=== PATIENT | female | born 1980 | race African-American/Black ===

== ENCOUNTER 2021-03-02 22:56 | Emergency (ER) | payer SELFPAY ==
[~2021-03-02 22:56] MED LIST: BACLOFEN 10MG T10 MG PO; MOBIC7.5 MG PO; NORCO 5-325 TA1 EACH PO; ONDANSETRON ODT4 MG SL
[2021-03-03 00:20] LABS: BILIRUBIN NEGATIVE (NEGATIVE); BLOOD 2+ Ery/uL (NEGATIVE); CLARITY CLEAR (CLEAR); COLOR YELLOW (YELLOW); GLUCOSE (U) NORMAL (NORMAL); LEUKOCYTES 2+ Leu/uL (NEGATIVE); NITRITE NEGATIVE (NEGATIVE); PROTEIN TRACE (LOW) mg/dL (NEGATIVE); SPECIFIC GRAVITY 1.025 (1.001-1.030); UROBILINOGEN 0.2 mg/dL (0.2-1.0)
[2021-03-03 00:34] LABS: URINARY WBC TNTC
[2021-03-03 00:35] LABS: BACTERIA 4+
[2021-03-03 02:02] LABS: BASOPHIL 0.6 % (0-2); EOSINOPHIL 1.4 % (0-5); HCT 37.6 % (37.0-47.0); HGB 12.5 g/dl (12.5-16.0); LYMPHOCYTE 52.1 % (15-48); MCH 30.3 pg (25.0-31.0); MCHC 33.2 g/dL (32.0-36.0); MONOCYTE 7.4 % (0-12); MPV 10.2 fL (6.0-9.5); NEUTROPHIL 38.3 % (41-80); NRBC 0; PLT 270 K/uL (150-400); RBC 4.13 M/uL (4.20-5.40); RDW 12.8 % (11.5-14.0); WBC 5.1 K/uL (4.0-10.5)
[2021-03-03 02:20] LABS: ALBUMIN 3.4 g/dL (3.4-5.0); BILIRUBIN - TOTAL 0.4 mg/dL (0.2-1.0); BUN/CREAT RATIO (CALC) 11.5 RATIO; CREATININE 1.13 mg/dL (0.51-0.95); GLOBULIN (CALCULATION) 4.2 g/dL; POTASSIUM 4.4 mmol/L (3.5-5.1); TOTAL PROTEIN 7.6 g/dL (6.4-8.2)
[2021-03-03 08:38] LABS: BILIRUBIN NEGATIVE (NEGATIVE); BLOOD 2+ Ery/uL (NEGATIVE); COLOR YELLOW (YELLOW); GLUCOSE (U) NORMAL (NORMAL); LEUKOCYTES 2+ Leu/uL (NEGATIVE); NITRITE POSITIVE (NEGATIVE); PROTEIN TRACE (LOW) mg/dL (NEGATIVE); SPECIFIC GRAVITY 1.025 (1.001-1.030); UROBILINOGEN 0.2 mg/dL (0.2-1.0)
[2021-03-03 08:39] LABS: CLARITY HAZY (CLEAR)
[2021-03-03 08:42] LABS: URINARY WBC TNTC
[2021-03-03 08:43] LABS: BACTERIA 2+
[2021-03-03 10:06] LABS: LACTIC ACID 1.7 mmol/L (0.4-1.9)
== END 2021-03-03 15:35 | disposition other institution (70) ==
LOC: FER 22:56
PROVIDERS: Emergency Medicine; Emergency Medicine Emergency Medical Services
DX: N13.2 Hydronephrosis with renal and ureteral calculous obstruction (principal); F17.200 Nicotine dependence, unspecified, uncomplicated; Z20.822 Contact with and (suspected) exposure to COVID-19
CPT/HCPCS: 36415; 80053; 81001; 83605; 83690; 85025; 87076; 87088; 87186; J1170; J1885; J2405; J2543; J7030; U0002

== ENCOUNTER 2021-09-05 13:56 | Emergency (ER) | payer OTHER ==
[2021-09-05] MEDS ORDERED: MEDROL 4MG DOSEP4 MG PO (15:53)
== END 2021-09-05 15:59 | disposition home or self-care (01) ==
LOC: FER 13:56
DX: G56.01 Carpal tunnel syndrome, right upper limb (principal)
CPT/HCPCS: 99283